=== PATIENT | male | born 1995 | race Caucasian/White ===

== ENCOUNTER 2017-05-08 20:19 | Inpatient (IN) | payer OTHER ==
[2017-05-08 22:23] LABS: Alanine Aminotransferase 57 units/L (7-56); Albumin 4.3 g/dL (3.9-5); Alkaline Phosphatase 59 units/L (35-129); Anion Gap 17 mmol/L; BUN/Creatinine Ratio 13.33; Blood Urea Nitrogen 12 mg/dL (9-20); Calcium 9.2 mg/dL (8.4-10.2); Carbon Dioxide 28 mmol/L (22-30); Glucose 121 mg/dL (75-100); Potassium 3.8 mmol/L (3.6-5.0); Sodium 138 mmol/L (137-145); Total Protein 8.4 g/dL (6.3-8.2)
[2017-05-08 22:33] LABS: Basophils % (Auto) 0.3 % (0.0-1.8); Eosinophils % (Auto) 0.2 % (0.0-4.3); Hematocrit 50.5 % (35.5-45.6); Hemoglobin 16.3 gm/dl (11.8-15.2); Lipase 876 units/L (13-60); Mean Corpuscular HGB Conc 32 % (32-34); Mean Corpuscular Hemoglobin 27 pg (28-32); Mean Corpuscular Volume 84 fl (84-94); Platelet Count 317 K/mm3 (140-440); Red Cell Distribution Width 13.9 % (13.2-15.2); White Blood Count 16.5 K/mm3 (4.5-11.0)
[2017-05-09] MEDS ORDERED: DILAUDID IV ONE ×2 (00:11→01:23)
[2017-05-09] MEDS ORDERED: PEPCID IV ONE (00:11)
[2017-05-09] MEDS ORDERED: ZOFRAN IV ONE (00:11)
[2017-05-09] MEDS ORDERED: NACL 0.9% 1000 ML 1,000 ML IV ONE (00:12)
--- NOTE | 2017-05-09 00:14 | Emergency Department Report ---
ED Abdominal Pain HPI - General Chief Complaint: Abdominal Pain Stated Complaint: ABDOMINAL PAIN Time Seen by Provider: 05/09/17 00:09 Source: patient, family, RN notes reviewed Mode of arrival: Wheelchair Limitations: No Limitations - History of Present Illness Initial Comments: This is a 22-year-old male. He is previously unknown to me. He does not have a local primary care doctor. He denies chronic medical conditions. He comes to the ER today complaining of epigastric, subxiphoid abdominal pain and chest pain. Multiple episodes of nausea and vomiting. Positive chills. No leg pain. No leg swelling. No hematemesis. No testicular pain. Irritative or obstructive urinary symptoms. The pain is sharp and aching. It increases with palpation and range of motion. It decreases with rest. No recent alcohol consumption. MD Complaint: abdominal pain -: Gradual Location: epigastric Radiation: back Severity: moderate Quality: stabbing, aching Consistency: constant Improves With: rest Worsens With: eating Associated Symptoms: nausea, vomiting, chills, anorexia - Related Data Home Medications Medication Instructions Recorded Confirmed Last Taken No Known Home Medications [No 05/09/17 05/09/17 Unknown Reported Home Medications] Allergies Allergy/AdvReac Type Severity Reaction Status Date / Time No Known Allergies Allergy Unverified 05/08/17 21:18 ED Review of Systems ROS: Stated complaint: ABDOMINAL PAIN Other details as noted in HPI Constitutional: malaise, weakness. denies: fever Eyes: denies: vision change ENT: denies: epistaxis Respiratory: denies: cough Cardiovascular: chest pain Gastrointestinal: abdominal pain, nausea, vomiting Genitourinary: denies: urgency, dysuria, testicular pain, testicular mass Musculoskeletal: back pain Skin: denies: lesions Neurological: weakness Psychiatric: anxiety ED Past Medical Hx - Past Medical History Previous Medical History?: No - Surgical History Past Surgical History?: No - Social History Smoking Status: Never Smoker Substance Use Type: None - Medications Home Medications: Home Medications Medication Instructions Recorded Confirmed Last Taken Type No Known Home Medications [No 05/09/17 05/09/17 Unknown History Reported Home Medications] ED Physical Exam - General Limitations: No Limitations General appearance: alert, in no apparent distress - Head Head exam: Present: atraumatic, normocephalic - Eye Eye exam: Present: normal appearance, EOMI. Absent: nystagmus - ENT ENT exam: Present: normal exam, normal orophraynx, mucous membranes moist, normal external ear exam - Neck Neck exam: Present: normal inspection, full ROM. Absent: tenderness, meningismus - Respiratory Respiratory exam: Present: normal lung sounds bilaterally. Absent: respiratory distress, wheezes, rales, rhonchi, chest wall tenderness, accessory muscle use, decreased breath sounds, prolonged expiratory - Cardiovascular Cardiovascular Exam: Present: regular rate, normal rhythm, normal heart sounds. Absent: bradycardia, tachycardia, irregular rhythm, systolic murmur, diastolic murmur, rubs, gallop - GI/Abdominal GI/Abdominal exam: Present: soft, tenderness, normal bowel sounds, other (there is epigastric tenderness. There is no rebound, guarding or peritoneal signs. There is a negative Galvan sign.). Absent: distended, guarding, rebound, rigid , pulsatile mass - Rectal Rectal exam: Present: deferred - Extremities Exam Extremities exam: Present: normal inspection, full ROM, normal capillary refill. Absent: tenderness, pedal edema, joint swelling, calf tenderness - Back Exam Back exam: Present: normal inspection, full ROM. Absent: tenderness, CVA tenderness (R), CVA tenderness (L), muscle spasm, paraspinal tenderness, vertebral tenderness - Neurological Exam Neurological exam: Present: alert, oriented X3, other (Extraocular movements intact. Tongue midline. No facial droop. Facial sensation intact to light touch in the V1, V2, V3 distribution bilaterally. 5 and 5 strength in 4 extremities.. Sensation is intact to light touch in 4 extremities.). Absent: motor sensory deficit - Psychiatric Psychiatric exam: Present: normal affect, normal mood - Skin Skin exam: Present: warm, dry, intact, normal color. Absent: rash ED Course Vital Signs 05/08/17 05/09/17 05/09/17 21:18 00:14 01:19 Temperature 98.3 F 98.1 F Pulse Rate 88 85 83 Respiratory 18 18 16 Rate Blood Pressure 145/108 Blood Pressure 146/103 139/82 [Left] O2 Sat by Pulse 99 100 100 Oximetry - Reevaluation(s) Reevaluation #1: 05/09/17 01:23 as expected, the CT scan demonstrates uncomplicated pancreatitis with no obvious abscess formation. 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 Additional pain medication ordered. The Hospital physician, Dr. William accepts patient to her service. ED Medical Decision Making - Lab Data Result diagrams: 05/08/17 21:44 05/08/17 21:44 Vital Signs 05/08/17 05/09/17 21:18 00:14 Temperature 98.3 F 98.1 F Pulse Rate 88 85 Respiratory 18 18 Rate Blood Pressure 145/108 Blood Pressure 146/103 [Left] O2 Sat by Pulse 99 100 Oximetry Lab Results 05/08/17 05/08/17 Range/Units 21:44 21:44 WBC 16.5 H (4.5-11.0) K/mm3 RBC 6.00 H (3.65-5.03) M/mm3 Hgb 16.3 H (11.8-15.2) gm/dl Hct 50.5 H (35.5-45.6) % MCV 84 (84-94) fl MCH 27 L (28-32) pg MCHC 32 (32-34) % RDW 13.9 (13.2-15.2) % Plt Count 317 (140-440) K/mm3 Lymph % (Auto) 9.0 L (13.4-35.0) % [place] % (Auto) 10.2 H (0.0-7.3) % Eos % (Auto) 0.2 (0.0-4.3) % Baso % (Auto) 0.3 (0.0-1.8) % Lymph # 1.5 (1.2-5.4) K/mm3 [place] # 1.7 H (0.0-0.8) K/mm3 Eos # 0.0 (0.0-0.4) K/mm3 Baso # 0.1 (0.0-0.1) K/mm3 Seg Neutrophils % 80.3 H (40.0-70.0) % Seg Neutrophils # 13.2 H (1.8-7.7) K/mm3 Sodium 138 (137-145) mmol/L Potassium 3.8 (3.6-5.0) mmol/L Chloride 97.0 L (98-107) mmol/L Carbon Dioxide 28 (22-30) mmol/L Anion Gap 17 mmol/L BUN 12 (9-20) mg/dL Creatinine 0.9 (0.8-1.5) mg/dL Estimated GFR > 60 ml/min BUN/Creatinine Ratio 13.33 % Glucose 121 H (75-100) mg/dL Calcium 9.2 (8.4-10.2) mg/dL Total Bilirubin 0.60 (0.1-1.2) mg/dL AST 21 (5-40) units/L ALT 57 H (7-56) units/L Alkaline Phosphatase 59 (35-129) units/L Total Protein 8.4 H (6.3-8.2) g/dL Albumin 4.3 (3.9-5) g/dL Albumin/Globulin Ratio 1.0 % Lipase 876 H (13-60) units/L - EKG Data -: EKG Interpreted by Nh EKG shows normal: sinus rhythm, axis, intervals, QRS complexes, ST-T waves - Radiology Data Radiology results: pending - Medical Decision Making Differential diagnosis: GERD, gastritis, pancreatitis, pneumonia, reflux Assessment and plan: 22-year-old male with epigastric abdominal pain, elevated lipase, we'll suspect pancreatitis. He has a leukocytosis and is hemoconcentrated. He is afebrile with reassuring vital signs. Low risk by AYALA score, low risk by heart score, low risk by well's criteria. The patient will be treated symptomatically. CT scan of the abdomen and pelvis is pending. Plan to admit for probable new-onset pancreatitis. Critical care attestation.: If time is entered above; I have spent that time in minutes in the direct care of this critically ill patient, excluding procedure time. ED Disposition Clinical Impression: Pancreatitis Disposition: OP ADMIT IP TO THIS HOSP Is pt being admited?: Yes Condition: Good
[2017-05-09 00:30] LABS: Bilirubin,Urine NEG (Negative); Blood,Urine NEG (Negative); Ketones,Urine TR mg/dL (Negative); Leukocyte Esterase,Urine NEG (Negative); Mucus,Urine 3+ /HPF; Nitrite,Urine NEG (Negative); Urobilinogen,Urine < 2.0 mg/dL (<2.0)
[2017-05-09] MEDS ORDERED: NACL ONE (00:37)
--- NOTE | 2017-05-09 01:12 | Cat Scan Report ---
FINAL REPORT EXAM: CT ABDOMEN PELVIS W CON HISTORY: abd pain pancreatitis TECHNIQUE: CT images are acquired through the Abdomen and Pelvis following intravenous administration of contrast. Transaxial, coronal and sagittal reformations are provided. PRIORS: None FINDINGS: Partially visualized intrathoracic contents are unremarkable. There is mild bulbous enlargement of the pancreas with retroperitoneal fluid and stranding, which extends inferiorly throughout the left pericolic gutter. Pancreatic enhancement is uniform. No walled-off necrosis or abscess formation. No pancreatic ductal dilatation or parenchymal calcification. Splenic vasculature is opacified and appears patent. The liver, gallbladder, spleen and adrenal glands are unremarkable. Kidneys show no worrisome lesions, hydronephrosis, or calculi. Urinary bladder is without intraluminal stone. Small and large bowel are normal in caliber. Suggested mild duodenal wall thickening with adjacent edema is likely secondary to primary pancreatic process. Appendix is normal. No pneumoperitoneum multiple prominent peripancreatic lymph nodes. Aorta is normal in course and caliber. Superficial soft tissues are unremarkable. No acute or aggressive appearing skeletal findings. IMPRESSION: Peripancreatic and retroperitoneal fluid and stranding are compatible with acute pancreatitis. Likely mild secondary duodenitis. No walled-off necrosis, abscess formation or other evident acute complication.
[2017-05-09] MEDS ORDERED: MILK OF MAGNESIA PO PRN (02:43)
[2017-05-09] MEDS ORDERED: DULCOLAX PR PRN (02:43)
--- NOTE | 2017-05-09 02:46 | History and Physical Report ---
History of Present Illness Date of examination: 05/09/17 History of present illness: 2-year-old man with no medical problem comes emergency room with complaints of epigastric pain, left upper quadrant pain that started yesterday. He describes the pain as sharp, constant, intensity 8/10, no radiation any cannot identify exacerbating or relieving factor. Admits to nausea vomiting, unable to eat Patient denies chest pain, palpitation, shortness of breath, cough, hematochezia, dysuria, frequency, focal weakness, dysarthria, fever chills, polydipsia polyuria, hot or cold intolerance, easy bruisability, or rash or bleeding from mucosal membrane, rhinorrhea, epistaxis, earache, tinnitus, blurry vision, eye discharge, anxiety, depression. Other review of systems negative PAST SURGICAL HISTORY: None SOCIAL HISTORY: Denies alcohol, tobacco, drugs FAMILY HISTORY: Hypertension Medications and Allergies Allergies Allergy/AdvReac Type Severity Reaction Status Date / Time No Known Allergies Allergy Unverified 05/08/17 21:18 Home Medications Medication Instructions Recorded Confirmed Last Taken Type No Known Home Medications [No 05/09/17 05/09/17 Unknown History Reported Home Medications] Exam - Physical Exam Narrative exam: Gen. appearance: Patient lying in bed, no apparent distress HEENT: Normocephalic, atraumatic, pupils equally round and reactive to light, extraocular movement intact, and no sclericterus,. No JVD or thyromegaly or nodule,neck supple, no carotid bruit ,mucous membranes moist, no exudate or erythema Heart: S1, S2, regular rate and rhythm Lungs: Clear to auscultation bilaterally, breathing comfortable Abdomen: Positive bowel sounds, tender in the epigastric and left upper quadrant , nondistended, no organomegaly Extremity: No edema, cyanosis, clubbing Skin: No rash, nodules, warm, dry Neuro: Oriented 3, cranial nerves II-12 intact, speech is fluent, motor and sensory intact - Constitutional Vitals: Temp Pulse Resp BP Pulse Ox 98.1 F 83 16 139/82 100 05/09/17 00:14 05/09/17 01:19 05/09/17 01:19 05/09/17 01:19 05/09/17 01:19 Results - Labs CBC & Chem 7: 05/08/17 21:44 05/08/17 21:44 Labs: Abnormal lab results 05/08/17 05/08/17 Range/Units 21:44 21:44 WBC 16.5 H (4.5-11.0) K/mm3 RBC 6.00 H (3.65-5.03) M/mm3 Hgb 16.3 H (11.8-15.2) gm/dl Hct 50.5 H (35.5-45.6) % MCH 27 L (28-32) pg Lymph % (Auto) 9.0 L (13.4-35.0) % [place] % (Auto) 10.2 H (0.0-7.3) % [place] # 1.7 H (0.0-0.8) K/mm3 Seg Neutrophils % 80.3 H (40.0-70.0) % Seg Neutrophils # 13.2 H (1.8-7.7) K/mm3 Chloride 97.0 L (98-107) mmol/L Glucose 121 H (75-100) mg/dL ALT 57 H (7-56) units/L Total Protein 8.4 H (6.3-8.2) g/dL Lipase 876 H (13-60) units/L - Imaging and Cardiology CT scan - abdomen: report reviewed CT scan - pelvis: report reviewed Assessment and Plan Acute pancreatitis, unknown etiology Leukocytosis, stress induced Admit to medicine Start IV fluids, IV morphine, placed on bowel rest Check lipid profile, start DVT prophylaxis
[2017-05-09] MEDS ORDERED: NACL 0.9% 1000 ML 1,000 ML IV SCH (03:00)
--- NOTE | 2017-05-09 03:36 | Admit Criteria Form ---
Admission Criteria Documentation: PANCREATITIS Clinical Indications for Admission to Inpatient Care (Place 'X' for any and all applicable criteria): Admission is indicated for 1 or more of the following (1)(2)(3)(4): [X ]I. Acute pancreatitis[A] as indicated by 2 or MORE of the following: [ X]a) Abdominal pain (eg, epigastric, left upper quadrant) [ X]b) Serum amylase or serum lipase greater than 3 times the upper limit of normal [ ]c) Characteristic findings from abdominal imaging (eg, pancreatic inflammation, pancreatic necrosis, peripancreatic fluid collection)[B] [ ]II. Pancreatitis (acute or chronic ) requiring inpatient care as indicated by 1 or more of the following [ ]a) Inability to maintain oral hydration Hypoxemia [ ]b) Evidence of infection (eg, fever, peripancreatic abscess) [ ]c) Severe pain requiring acute inpatient management [ ]d) Hemodynamic instability [ ]e) Hypoxemia [ ]f) Acute renal failure [ ]g) Severe electrolyte abnormalities Extended stay beyond goal length of stay may be needed for (1)(11) [ ]a) Severe acute pancreatitis (10)(19) [ ]b) Persistent symptoms, ascites, or pleural effusion [ ]c) Abdominal compartment syndrome (10) [ ]d) Late complications [ ]e) Gallstones in gallbladder [ ]f) Acute renal failure (27) The original [employer] content created by [employer] has been revised. The portions of the content which have been revised are identified through the use of italic text or in bold,and [facility] has neither reviewed nor approved the modified material.All other unmodified content is copyright [facility]. Please see references footnoted in the original [facility] edition 2016 Admission Criteria Met: Yes
[2017-05-09] MEDS: MORPHINE IV PRN ×6 (05:10→23:46)
--- NOTE | 2017-05-09 07:17 | XRay Report ---
Single view chest: History: Chest pain. Findings: Normal cardiomediastinal silhouette. Trachea is midline. No consolidation, pneumothorax or pleural effusion. Impression: No acute cardiopulmonary findings.
[2017-05-09] MEDS: LOVENOX SUB-Q SCH (09:27)
--- NOTE | 2017-05-09 10:24 | Event Note ---
Date: 05/09/17 Patient with acute pancreatitis. Still complain of abdominal pain. He was seen and examined. Will increase Morphine to 4mg iv every 4 hours prn.
[2017-05-09] MEDS: PEPCID IV SCH ×2 (12:24→22:00)
[2017-05-09] MEDS: PROTONIX PO SCH (12:24)
[2017-05-09] MEDS: D5NS 1,000 ML IV SCH ×2 (12:25→21:59)
--- NOTE | 2017-05-09 18:43 | Consultation ---
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 No GI bleed, F/C/NS, diarrhea. Here, found to have pancreatitis by labs and CT. No prior history of this. No hx of EtOH. Only takes PPI for heartburn at home. No weight loss. Of note, pt states he had similar symptoms 12 yrs ago, and thinks he was advised to get CCX, but his mother declined. Past History Past Medical History: GERD Past Surgical History: No surgical history Social history: denies: smoking, alcohol abuse Medications and Allergies Allergies Allergy/AdvReac Type Severity Reaction Status Date / Time No Known Allergies Allergy Unverified 05/08/17 21:18 Home Medications Medication Instructions Recorded Confirmed Last Taken Type No Known Home Medications [No 05/09/17 05/09/17 Unknown History Reported Home Medications] Active Meds: Active Medications Acetaminophen (Tylenol) 650 mg PO Q4H PRN PRN Reason: Pain MILD(1-3)/Fever >100.5/HOLT Bisacodyl (Dulcolax) 10 mg DE QDAY PRN PRN Reason: Constipation unrelieved by MOM Enoxaparin Sodium (Lovenox) 40 mg SUB-Q QDAY [facility] Last Admin: 05/09/17 09:27 Dose: 40 mg Famotidine (Pepcid) 20 mg IV BID [facility] Last Admin: 05/09/17 12:24 Dose: 20 mg Sodium Chloride (Nacl 0.9% 1000 Ml) 1,000 mls @ 150 mls/hr IV DIRECT YU Dextrose/Sodium Chloride (D5ns) 1,000 mls @ 100 mls/hr IV DIRECT YU Last Admin: 05/09/17 12:25 Dose: 100 mls/hr Magnesium Hydroxide (Milk Of Magnesia) 30 ml PO Q4H PRN PRN Reason: Constipation Morphine Sulfate (Morphine) 4 mg IV Q4H PRN PRN Reason: Pain, Moderate (4-6) Last Admin: 05/09/17 16:46 Dose: 4 mg Ondansetron HCl (Zofran) 4 mg IV Q8H PRN PRN Reason: N/V unrelieved by Reglan Pantoprazole Sodium (Protonix) 40 mg PO QDAY [facility] Last Admin: 05/09/17 12:24 Dose: 40 mg Review of Systems All systems: negative (as per HPI) Exam - Constitutional Vitals: Temp Pulse Resp BP Pulse Ox 98.7 F 78 22 147/95 100 05/09/17 08:10 05/09/17 08:10 05/09/17 08:10 05/09/17 08:10 05/09/17 13:01 General appearance: Present: no acute distress - EENT Eyes: Present: PERRL, EOM intact ENT: hearing intact - Respiratory Respiratory effort: normal Respiratory: bilateral: CTA - Cardiovascular Rhythm: regular Heart Sounds: Present: S1 & S2 - Extremities Extremities: No edema - Abdominal General gastrointestinal: Present: soft, tender (Diffuse, jaclyn epigastric and LLQ ), normal bowel sounds Results - Labs CBC & Chem 7: 05/08/17 21:44 05/08/17 21:44 Labs: Abnormal lab results 05/09/17 Range/Units Unknown Triglycerides 167 H (2-149) mg/dL Cholesterol 230 H (50-199) mg/dL LDL Cholesterol Direct 155 H (50-130) mg/dL Assessment and Plan 1. Pancreatitis - by CT and labs and clinically. No clear etiology. Biliary etiology needs to be excluded. Triglycerides not elevated enough. - conservative, supportive care - GB ultrasound
[2017-05-09] MEDS: ZOFRAN IV PRN (20:11)
[2017-05-10] MEDS: ZOFRAN IV PRN ×3 (03:02→18:41)
[2017-05-10] MEDS: DILAUDID IV PRN ×5 (03:23→22:56)
[2017-05-10 06:49] LABS: Basophils % (Auto) 0.3 % (0.0-1.8); Hematocrit 42.9 % (35.5-45.6); Hemoglobin 13.5 gm/dl (11.8-15.2); Mean Corpuscular HGB Conc 32 % (32-34); Mean Corpuscular Hemoglobin 27 pg (28-32); Mean Corpuscular Volume 87 fl (84-94); Platelet Count 233 K/mm3 (140-440); Red Blood Count 4.96 M/mm3 (3.65-5.03); Red Cell Distribution Width 14.2 % (13.2-15.2); White Blood Count 15.4 K/mm3 (4.5-11.0)
[2017-05-10] MEDS: D5NS 1,000 ML IV SCH ×2 (07:03→22:57)
[2017-05-10 07:14] LABS: Anion Gap 16 mmol/L; Blood Urea Nitrogen 8 mg/dL (9-20); Calcium 8.2 mg/dL (8.4-10.2); Carbon Dioxide 24 mmol/L (22-30); Chloride 101.4 mmol/L (98-107); Glucose 93 mg/dL (75-100); Lipase 195 units/L (13-60); Sodium 137 mmol/L (137-145)
[2017-05-10] MEDS: LOVENOX SUB-Q SCH (09:28)
[2017-05-10] MEDS: PEPCID IV SCH ×2 (09:28→22:55)
[2017-05-10] MEDS: PROTONIX PO SCH (09:28)
--- NOTE | 2017-05-10 09:35 | Ultrasound Report ---
Ultrasound of the right upper quadrant. History: Abdominal pain nausea. Findings: The abdominal aorta and liver are normal. There are a few low level echoes within the gallbladder lumen, but no acoustic shadowing. The wall of the gallbladder is normal in thickness. The common bile duct is normal at 4.5 mm. The right kidney is normal in size and configuration with no evidence of mass or hydronephrosis. The pancreas is not well-visualized. Please refer to the CT abdominal scan performed on May 09, 2017. Impression: Minimal gallbladder sludge formation with no other significant findings.
--- NOTE | 2017-05-10 10:45 | Progress Note ---
Assessment and Plan Assessment and plan: Acute pancreatitis. Etiology unclear. He does not drink alcohol. Abdominal ultrasound did not show any stones. Dilaudid for pain management.I discussed case with GI Physician, and to commence obtaining a surgical consult. Also discussed with surgeon Dr. Ku. Hyperlipidemia DVT prophylaxis with Lovenox. History Interval history: Feels better, Less abdominal pain Hospitalist Physical - Physical exam Narrative exam: Gen Appearance: No acute distress, obese HEENT: normocephalic, atraumatic Neck: supple, no JVD Lungs: clear to auscultation bilaterally, no crackles or wheezes Heart: S1 and S2 regular, no murmurs or gallop Abdomen: Soft, tender upper abdomen, non-distended, normal bowel sounds Extremity: No edema, clubbing or cyanosis Neuro : Awake, alert, oriented x 3 Psych :calm - Constitutional Vitals: Temp Pulse Resp BP Pulse Ox 100.1 F H 105 H 18 127/72 95 05/10/17 08:20 05/10/17 08:20 05/10/17 08:20 05/10/17 08:20 05/10/17 08:20 General appearance: Present: no acute distress Results - Labs CBC & Chem 7: 05/10/17 06:19 05/10/17 06:19 Labs: Laboratory Last Values WBC 15.4 K/mm3 (4.5-11.0) H 05/10/17 06:19 RBC 4.96 M/mm3 (3.65-5.03) 05/10/17 06:19 Hgb 13.5 gm/dl (11.8-15.2) 05/10/17 06:19 Hct 42.9 % (35.5-45.6) D 05/10/17 06:19 MCV 87 fl (84-94) D 05/10/17 06:19 MCH 27 pg (28-32) L 05/10/17 06:19 MCHC 32 % (32-34) 05/10/17 06:19 RDW 14.2 % (13.2-15.2) 05/10/17 06:19 Plt Count 233 K/mm3 (140-440) 05/10/17 06:19 Lymph % (Auto) 11.1 % (13.4-35.0) L 05/10/17 06:19 [place] % (Auto) 11.7 % (0.0-7.3) H 05/10/17 06:19 Eos % (Auto) 1.0 % (0.0-4.3) 05/10/17 06:19 Baso % (Auto) 0.3 % (0.0-1.8) 05/10/17 06:19 Lymph # 1.7 K/mm3 (1.2-5.4) 05/10/17 06:19 [place] # 1.8 K/mm3 (0.0-0.8) H 05/10/17 06:19 Eos # 0.1 K/mm3 (0.0-0.4) 05/10/17 06:19 Baso # 0.1 K/mm3 (0.0-0.1) 05/10/17 06:19 Seg Neutrophils % 75.9 % (40.0-70.0) H 05/10/17 06:19 Seg Neutrophils # 11.7 K/mm3 (1.8-7.7) H 05/10/17 06:19 Sodium 137 mmol/L (137-145) 05/10/17 06:19 Potassium 4.0 mmol/L (3.6-5.0) 05/10/17 06:19 Chloride 101.4 mmol/L (98-107) 05/10/17 06:19 Carbon Dioxide 24 mmol/L (22-30) 05/10/17 06:19 Anion Gap 16 mmol/L 05/10/17 06:19 BUN 8 mg/dL (9-20) L 05/10/17 06:19 Creatinine 0.8 mg/dL (0.8-1.5) 05/10/17 06:19 Estimated GFR > 60 ml/min 05/10/17 06:19 BUN/Creatinine Ratio 10.00 % 05/10/17 06:19 Glucose 93 mg/dL (75-100) 05/10/17 06:19 Calcium 8.2 mg/dL (8.4-10.2) L 05/10/17 06:19 Total Bilirubin 0.60 mg/dL (0.1-1.2) 05/08/17 21:44 AST 21 units/L (5-40) 05/08/17 21:44 ALT 57 units/L (7-56) H 05/08/17 21:44 Alkaline Phosphatase 59 units/L (35-129) 05/08/17 21:44 Total Protein 8.4 g/dL (6.3-8.2) H 05/08/17 21:44 Albumin 4.3 g/dL (3.9-5) 05/08/17 21:44 Albumin/Globulin Ratio 1.0 % 05/08/17 21:44 Triglycerides 167 mg/dL (2-149) H 05/09/17 Unknown Cholesterol 230 mg/dL (50-199) H 05/09/17 Unknown LDL Cholesterol Direct 155 mg/dL (50-130) H 05/09/17 Unknown HDL Cholesterol 42 mg/dL (40-59) 05/09/17 Unknown Cholesterol/HDL Ratio 5.47 % 05/09/17 Unknown Lipase 195 units/L (13-60) H 05/10/17 06:19 Urine Color Kyra (Yellow) 05/08/17 23:41 Urine Turbidity Clear (Clear) 05/08/17 23:41 Urine pH 6.0 (5.0-7.0) 05/08/17 23:41 Ur Specific [place] 1.029 (1.003-1.030) 05/08/17 23:41 Urine Protein 100 mg/dl mg/dL (Negative) 05/08/17 23:41 Urine Glucose (UA) Neg mg/dL (Negative) 05/08/17 23:41 Urine Ketones Tr mg/dL (Negative) 05/08/17 23:41 Urine Blood Neg (Negative) 05/08/17 23:41 Urine Nitrite Neg (Negative) 05/08/17 23:41 Urine Bilirubin Neg (Negative) 05/08/17 23:41 Urine Urobilinogen < 2.0 mg/dL (<2.0) 05/08/17 23:41 Ur Leukocyte Esterase Neg (Negative) 05/08/17 23:41 Urine WBC (Auto) 4.0 /HPF (0.0-6.0) 05/08/17 23:41 Urine RBC (Auto) 5.0 /HPF (0.0-6.0) 05/08/17 23:41 U Epithel Cells (Auto) < 1.0 /HPF (0-13.0) 05/08/17 23:41 Hyaline Casts 4 /LPF 05/08/17 23:41 Urine Mucus 3+ /HPF 05/08/17 23:41
[2017-05-10] MEDS: TYLENOL PO PRN (12:12)
--- NOTE | 2017-05-10 14:42 | Progress Note ---
Assessment and Plan 1. Pancreatitis - clinically improved. U/S shows sludge in GB, most likely etiology of pancreatitis. - would recommend elective CCX - adv diet as tolerated. Subjective Date of service: 05/10/17 Interval history: Pt feels much better. Less abd pain. Objective - Constitutional Vitals: Vital Signs - 12hr 05/10/17 05/10/17 05/10/17 03:23 07:01 08:20 Temperature 100.1 F H Pulse Rate [ 105 H Left Radial] Respiratory 18 18 18 Rate Blood Pressure 127/72 [Left Arm] O2 Sat by Pulse 95 Oximetry General appearance: Present: no acute distress - EENT Eyes: PERRL, EOM intact ENT: hearing intact - Respiratory Respiratory effort: normal - Gastrointestinal General gastrointestinal: Present: soft, tender (Minimal, epigastric and LLQ), normal bowel sounds - Labs CBC & Chem 7: 05/10/17 06:19 05/10/17 06:19 Labs: Abnormal lab results 05/10/17 05/10/17 Range/Units 06:19 06:19 WBC 15.4 H (4.5-11.0) K/mm3 MCH 27 L (28-32) pg Lymph % (Auto) 11.1 L (13.4-35.0) % [place] % (Auto) 11.7 H (0.0-7.3) % [place] # 1.8 H (0.0-0.8) K/mm3 Seg Neutrophils % 75.9 H (40.0-70.0) % Seg Neutrophils # 11.7 H (1.8-7.7) K/mm3 BUN 8 L (9-20) mg/dL Calcium 8.2 L (8.4-10.2) mg/dL Lipase 195 H (13-60) units/L
--- NOTE | 2017-05-10 15:00 | Consultation ---
History of Present Illness Reason for consult: gallstones - History of present illness History of present illness: Pt seen tday for abd pain nasea and vomiting ,with elevated lipase 700 ;Us sludge will obtain hida scan talked to Dr uriostegui ,talked to the Pt uncle , awaiting result , Past History Past Medical History: GERD Past Surgical History: No surgical history Social history: denies: smoking, alcohol abuse Medications and Allergies Allergies Allergy/AdvReac Type Severity Reaction Status Date / Time No Known Allergies Allergy Unverified 05/08/17 21:18 Home Medications Medication Instructions Recorded Confirmed Last Taken Type No Known Home Medications [No 05/09/17 05/09/17 Unknown History Reported Home Medications] Active Meds: Active Medications Acetaminophen (Tylenol) 650 mg PO Q4H PRN PRN Reason: Pain MILD(1-3)/Fever >100.5/HOLT Last Admin: 05/10/17 12:12 Dose: 650 mg Bisacodyl (Dulcolax) 10 mg [place] QDAY PRN PRN Reason: Constipation unrelieved by MOM Enoxaparin Sodium (Lovenox) 40 mg SUB-Q QDAY YU Last Admin: 05/10/17 09:28 Dose: 40 mg Famotidine (Pepcid) 20 mg IV BID YU Last Admin: 05/10/17 09:28 Dose: 20 mg Hydromorphone HCl (Dilaudid) 2 mg IV Q4HR PRN PRN Reason: Severe Pain Last Admin: 05/10/17 12:12 Dose: 2 mg Sodium Chloride (Nacl 0.9% 1000 Ml) 1,000 mls @ 150 mls/hr IV DIRECT YU Dextrose/Sodium Chloride (D5ns) 1,000 mls @ 100 mls/hr IV DIRECT YU Last Admin: 05/10/17 07:03 Dose: 100 mls/hr Magnesium Hydroxide (Milk Of Magnesia) 30 ml PO Q4H PRN PRN Reason: Constipation Ondansetron HCl (Zofran) 4 mg IV Q6H PRN PRN Reason: Nausea And Vomiting Last Admin: 05/10/17 10:56 Dose: 4 mg Exam Vital Signs Temp Pulse Resp BP Pulse Ox 98.3 F 88 18 145/108 99 05/08/17 21:18 05/08/17 21:18 05/08/17 21:18 05/08/17 21:18 05/08/17 21:18 Results - Labs 05/10/17 06:19 05/10/17 06:19 Abnormal lab results 05/10/17 05/10/17 Range/Units 06:19 06:19 WBC 15.4 H (4.5-11.0) K/mm3 MCH 27 L (28-32) pg Lymph % (Auto) 11.1 L (13.4-35.0) % [place] % (Auto) 11.7 H (0.0-7.3) % [place] # 1.8 H (0.0-0.8) K/mm3 Seg Neutrophils % 75.9 H (40.0-70.0) % Seg Neutrophils # 11.7 H (1.8-7.7) K/mm3 BUN 8 L (9-20) mg/dL Calcium 8.2 L (8.4-10.2) mg/dL Lipase 195 H (13-60) units/L Diabetes panel 05/10/17 Range/Units 06:19 Sodium 137 (137-145) mmol/L Potassium 4.0 (3.6-5.0) mmol/L Chloride 101.4 (98-107) mmol/L Carbon Dioxide 24 (22-30) mmol/L BUN 8 L (9-20) mg/dL Creatinine 0.8 (0.8-1.5) mg/dL Glucose 93 (75-100) mg/dL Calcium 8.2 L (8.4-10.2) mg/dL Calcium panel 05/10/17 Range/Units 06:19 Calcium 8.2 L (8.4-10.2) mg/dL Pituitary panel 05/10/17 Range/Units 06:19 Sodium 137 (137-145) mmol/L Potassium 4.0 (3.6-5.0) mmol/L Chloride 101.4 (98-107) mmol/L Carbon Dioxide 24 (22-30) mmol/L BUN 8 L (9-20) mg/dL Creatinine 0.8 (0.8-1.5) mg/dL Glucose 93 (75-100) mg/dL Calcium 8.2 L (8.4-10.2) mg/dL Adrenal panel 05/10/17 Range/Units 06:19 Sodium 137 (137-145) mmol/L Potassium 4.0 (3.6-5.0) mmol/L Chloride 101.4 (98-107) mmol/L Carbon Dioxide 24 (22-30) mmol/L BUN 8 L (9-20) mg/dL Creatinine 0.8 (0.8-1.5) mg/dL Glucose 93 (75-100) mg/dL Calcium 8.2 L (8.4-10.2) mg/dL
--- NOTE | 2017-05-10 16:52 | Anesthesia Consultation ---
Anesthesia Consult and Med Hx Date of service: 05/10/17 - Airway Anesthetic Teeth Evaluation: Good ROM Head & Neck: Adequate Mental/Hyoid Distance: Adequate Mallampati Class: Class II Intubation Access Assessment: Probably Good - Pulmonary Exam CTA: Yes - Cardiac Exam Cardiac Exam: RRR - Pre-Operative Health Status ASA Pre-Surgery Classification: ASA1 Proposed Anesthetic Plan: General - Pulmonary Hx Asthma: No COPD: No Hx Pneumonia: No - Central Nervous System Hx Psychiatric Problems: No - Gastrointestinal Hx Gastroesophageal Reflux Disease: Yes (takes Prilosec) - Endocrine Hx End Stage Renal Disease: No - Other Systems Hx Cancer: No - Additional Comments Anesthesia Medical History Comments: No prior anesthesia
[2017-05-10] MEDS ORDERED: KINEVAC IV ONE (16:55)
[2017-05-10] MEDS ORDERED: WATER FOR INJ (PF) 10 ML ONE (16:56)
--- NOTE | 2017-05-10 18:04 | Nuclear Medicine Report ---
FINAL REPORT PROCEDURE: NM HEPATOBILIARY W CCK TECHNIQUE: Gamma camera images of the upper abdomen, including the hepatobiliary ductal system and gallbladder, were obtained after the IV injection of 5 mCi Tc-99m Choletec. Quantitative measurement of gallbladder function was obtained after the 60 minute IV infusion of 1.87 micrograms of cholecystokinin. HISTORY: Right upper quadrant abdomen pain COMPARISON: No relevant imaging study of the anatomical region(s) in question is available, or known to exist, for comparison . FINDINGS: Hepatic extraction: Normal . Liver size/shape: Normal . Gallbladder visualization: Prompt excretion into the gallbladder. Biliary to bowel transit: Prompt excretion into the small bowel. Gallbladder Ejection Fraction after CCk: 13 percent. (Normal range is greater than or equal to 38 percent at 60 minutes) IMPRESSION: Gallbladder hypokinesis is seen. No biliary ductal obstruction or suggestion of acute cholecystitis is seen.
--- NOTE | 2017-05-10 22:18 | Progress Note ---
Subjective Narrative: Hida scan done this PM E/F 13% talked to Dr Sun tis AM agreed on cholecystectomy . the family discussed the case ,opted not to have surgery , left it as is , Family expressed the desire to go home will leave this for the MD in charge, OR informed , will see PRN thanks . Objective Vital Signs - 12hr 05/10/17 12:10 Temperature 100.3 F H Pulse Rate [ 113 H Left Radial] Respiratory 20 Rate Blood Pressure 138/84 [Left Arm] - Labs 05/10/17 06:19 05/10/17 06:19 Diabetes panel 05/10/17 Range/Units 06:19 Sodium 137 (137-145) mmol/L Potassium 4.0 (3.6-5.0) mmol/L Chloride 101.4 (98-107) mmol/L Carbon Dioxide 24 (22-30) mmol/L BUN 8 L (9-20) mg/dL Creatinine 0.8 (0.8-1.5) mg/dL Glucose 93 (75-100) mg/dL Calcium 8.2 L (8.4-10.2) mg/dL Calcium panel 05/10/17 Range/Units 06:19 Calcium 8.2 L (8.4-10.2) mg/dL Pituitary panel 05/10/17 Range/Units 06:19 Sodium 137 (137-145) mmol/L Potassium 4.0 (3.6-5.0) mmol/L Chloride 101.4 (98-107) mmol/L Carbon Dioxide 24 (22-30) mmol/L BUN 8 L (9-20) mg/dL Creatinine 0.8 (0.8-1.5) mg/dL Glucose 93 (75-100) mg/dL Calcium 8.2 L (8.4-10.2) mg/dL Adrenal panel 05/10/17 Range/Units 06:19 Sodium 137 (137-145) mmol/L Potassium 4.0 (3.6-5.0) mmol/L Chloride 101.4 (98-107) mmol/L Carbon Dioxide 24 (22-30) mmol/L BUN 8 L (9-20) mg/dL Creatinine 0.8 (0.8-1.5) mg/dL Glucose 93 (75-100) mg/dL Calcium 8.2 L (8.4-10.2) mg/dL
[2017-05-11] MEDS: ZOFRAN IV PRN ×4 (00:45→22:20)
[2017-05-11] MEDS: DILAUDID IV PRN ×5 (02:47→20:43)
[2017-05-11] MEDS: D5NS 1,000 ML IV SCH ×2 (08:15→20:44)
--- NOTE | 2017-05-11 08:42 | Gastroenterology Progress Note ---
Assessment and Plan GI: stable without problems overnight - HIDA results noted - pt for outpt surgical follow up and consider surgery then - ok to d/c from GI standpoint - will sign off, call if needed Subjective Date of service: 05/11/17 Interval history: - no problems overnight Objective - Constitutional Vitals: Temp Pulse Resp BP Pulse Ox 100.5 F H 111 H 16 127/60 92 05/10/17 22:59 05/10/17 22:59 05/10/17 22:59 05/10/17 22:59 05/10/17 22:59 General appearance: no acute distress - Respiratory Respiratory: bilateral: CTA - Cardiovascular Rhythm: regular Heart Sounds: Present: S1 & S2 - Gastrointestinal General gastrointestinal: Present: soft, non-tender - Labs CBC & Chem 7: 05/10/17 06:19 05/10/17 06:19
[2017-05-11] MEDS: PEPCID IV SCH ×2 (09:00→22:20)
[2017-05-11] MEDS: LOVENOX SUB-Q SCH (09:00)
--- NOTE | 2017-05-11 10:16 | Progress Note ---
Assessment and Plan Assessment and plan: Acute pancreatitis. Etiology unclear. He does not drink alcohol. Abdominal ultrasound did not show any stones. Dilaudid for pain management.I discussed case with GI Physician, Surgeon. Advance diet. SIRS with fever, tachycardia. Tylenol prn, iv flids Fever. Monitor. Blood cultures drawn. Start empiric Antibiotics Hyperlipidemia DVT prophylaxis with Lovenox. History Interval history: Feels better, Less abdominal pain, fever Hospitalist Physical - Physical exam Narrative exam: Gen Appearance: No acute distress, obese HEENT: normocephalic, atraumatic Neck: supple, no JVD Lungs: clear to auscultation bilaterally, no crackles or wheezes Heart: S1 and S2 regular, no murmurs or gallop Abdomen: Soft, tender upper abdomen, non-distended, normal bowel sounds Extremity: No edema, clubbing or cyanosis Neuro : Awake, alert, oriented x 3 Psych :calm - Constitutional Vitals: Temp Pulse Resp BP Pulse Ox 100.5 F H 112 H 18 100/60 98 05/11/17 08:00 05/11/17 08:00 05/11/17 08:00 05/11/17 08:00 05/11/17 08:00 General appearance: Present: no acute distress Results - Labs CBC & Chem 7: 05/10/17 06:19 05/10/17 06:19 Labs: Laboratory Last Values WBC 15.4 K/mm3 (4.5-11.0) H 05/10/17 06:19 RBC 4.96 M/mm3 (3.65-5.03) 05/10/17 06:19 Hgb 13.5 gm/dl (11.8-15.2) 05/10/17 06:19 Hct 42.9 % (35.5-45.6) D 05/10/17 06:19 MCV 87 fl (84-94) D 05/10/17 06:19 MCH 27 pg (28-32) L 05/10/17 06:19 MCHC 32 % (32-34) 05/10/17 06:19 RDW 14.2 % (13.2-15.2) 05/10/17 06:19 Plt Count 233 K/mm3 (140-440) 05/10/17 06:19 Lymph % (Auto) 11.1 % (13.4-35.0) L 05/10/17 06:19 [place] % (Auto) 11.7 % (0.0-7.3) H 05/10/17 06:19 Eos % (Auto) 1.0 % (0.0-4.3) 05/10/17 06:19 Baso % (Auto) 0.3 % (0.0-1.8) 05/10/17 06:19 Lymph # 1.7 K/mm3 (1.2-5.4) 05/10/17 06:19 [place] # 1.8 K/mm3 (0.0-0.8) H 05/10/17 06:19 Eos # 0.1 K/mm3 (0.0-0.4) 05/10/17 06:19 Baso # 0.1 K/mm3 (0.0-0.1) 05/10/17 06:19 Seg Neutrophils % 75.9 % (40.0-70.0) H 05/10/17 06:19 Seg Neutrophils # 11.7 K/mm3 (1.8-7.7) H 05/10/17 06:19 Sodium 137 mmol/L (137-145) 05/10/17 06:19 Potassium 4.0 mmol/L (3.6-5.0) 05/10/17 06:19 Chloride 101.4 mmol/L (98-107) 05/10/17 06:19 Carbon Dioxide 24 mmol/L (22-30) 05/10/17 06:19 Anion Gap 16 mmol/L 05/10/17 06:19 BUN 8 mg/dL (9-20) L 05/10/17 06:19 Creatinine 0.8 mg/dL (0.8-1.5) 05/10/17 06:19 Estimated GFR > 60 ml/min 05/10/17 06:19 BUN/Creatinine Ratio 10.00 % 05/10/17 06:19 Glucose 93 mg/dL (75-100) 05/10/17 06:19 Calcium 8.2 mg/dL (8.4-10.2) L 05/10/17 06:19 Total Bilirubin 0.60 mg/dL (0.1-1.2) 05/08/17 21:44 AST 21 units/L (5-40) 05/08/17 21:44 ALT 57 units/L (7-56) H 05/08/17 21:44 Alkaline Phosphatase 59 units/L (35-129) 05/08/17 21:44 Total Protein 8.4 g/dL (6.3-8.2) H 05/08/17 21:44 Albumin 4.3 g/dL (3.9-5) 05/08/17 21:44 Albumin/Globulin Ratio 1.0 % 05/08/17 21:44 Triglycerides 167 mg/dL (2-149) H 05/09/17 Unknown Cholesterol 230 mg/dL (50-199) H 05/09/17 Unknown LDL Cholesterol Direct 155 mg/dL (50-130) H 05/09/17 Unknown HDL Cholesterol 42 mg/dL (40-59) 05/09/17 Unknown Cholesterol/HDL Ratio 5.47 % 05/09/17 Unknown Lipase 195 units/L (13-60) H 05/10/17 06:19 Urine Color [place] (Yellow) 05/08/17 23:41 Urine Turbidity Clear (Clear) 05/08/17 23:41 Urine pH 6.0 (5.0-7.0) 05/08/17 23:41 Ur Specific [place] 1.029 (1.003-1.030) 05/08/17 23:41 Urine Protein 100 mg/dl mg/dL (Negative) 05/08/17 23:41 Urine Glucose (UA) Neg mg/dL (Negative) 05/08/17 23:41 Urine Ketones Tr mg/dL (Negative) 05/08/17 23:41 Urine Blood Neg (Negative) 05/08/17 23:41 Urine Nitrite Neg (Negative) 05/08/17 23:41 Urine Bilirubin Neg (Negative) 05/08/17 23:41 Urine Urobilinogen < 2.0 mg/dL (<2.0) 05/08/17 23:41 Ur Leukocyte Esterase Neg (Negative) 05/08/17 23:41 Urine WBC (Auto) 4.0 /HPF (0.0-6.0) 05/08/17 23:41 Urine RBC (Auto) 5.0 /HPF (0.0-6.0) 05/08/17 23:41 U Epithel Cells (Auto) < 1.0 /HPF (0-13.0) 05/08/17 23:41 Hyaline Casts 4 /LPF 05/08/17 23:41 Urine Mucus 3+ /HPF 05/08/17 23:41
[2017-05-11] MEDS: TYLENOL PO PRN (14:29)
[2017-05-11 15:26] LABS: Hematocrit 39.9 % (35.5-45.6); Mean Corpuscular HGB Conc 33 % (32-34); Mean Corpuscular Hemoglobin 28 pg (28-32); Mean Corpuscular Volume 85 fl (84-94); Platelet Count 237 K/mm3 (140-440); Red Cell Distribution Width 13.6 % (13.2-15.2); White Blood Count 15.8 K/mm3 (4.5-11.0)
[2017-05-11 15:38] LABS: Anion Gap 17 mmol/L; BUN/Creatinine Ratio 4.44; Blood Urea Nitrogen 4 mg/dL (9-20); Calcium 8.7 mg/dL (8.4-10.2); Carbon Dioxide 29 mmol/L (22-30); Chloride 96.4 mmol/L (98-107); Glucose 96 mg/dL (75-100); Lipase 118 units/L (13-60); Potassium 4.3 mmol/L (3.6-5.0); Sodium 138 mmol/L (137-145)
[2017-05-11] MEDS ORDERED: LEVAQUIN 750MG/150ML 750 MG/150 ML BAG IV SCH (17:00)
[2017-05-12] MEDS: DILAUDID IV PRN ×3 (01:00→09:31)
[2017-05-12] MEDS: D5NS 1,000 ML IV SCH (05:12)
[2017-05-12 05:17] LABS: White Blood Count 13.5 K/mm3 (4.5-11.0)
[2017-05-12 05:21] LABS: Anion Gap 19 mmol/L; BUN/Creatinine Ratio 5.71; Blood Urea Nitrogen 4 mg/dL (9-20); Calcium 8.5 mg/dL (8.4-10.2); Carbon Dioxide 24 mmol/L (22-30); Chloride 97.7 mmol/L (98-107); Glucose 92 mg/dL (75-100); Sodium 137 mmol/L (137-145)
[2017-05-12 05:25] LABS: Hematocrit 40.2 % (35.5-45.6); Mean Corpuscular Hemoglobin 28 pg (28-32); Mean Corpuscular Volume 85 fl (84-94); Red Blood Count 4.72 M/mm3 (3.65-5.03)
[2017-05-12 05:26] LABS: Mean Corpuscular HGB Conc 33 % (32-34); Platelet Count 253 K/mm3 (140-440); Red Cell Distribution Width 13.6 % (13.2-15.2)
[2017-05-12] MEDS: ZOFRAN IV PRN ×2 (06:47→12:20)
[2017-05-12 08:31] VITALS: BP 126/78
--- NOTE | 2017-05-12 08:56 | Discharge Summary ---
Providers - Providers Date of Admission: 05/09/17 02:43 Date of discharge: 05/12/17 Attending physician: KRIS VÁSQUEZ 05/09/17 07:57 Consult to Physician [CONS] Routine Consulting Provider: MARYLIN SUN Reason For Exam: Acute pancreatitis Place consult to:: dr. sun Notified:: office Phone number called:: Was contact made?: Yes Time called:: 11:44 05/10/17 12:01 Consult to Physician [CONS] Routine Consulting Provider: SHAHRIAR BROOKS Reason For Exam: Gall bladder sludge,acute pancreatitis Place consult to:: dr brooks Notified:: dr brooks Was contact made?: Yes If yes, spoke with:: dr. brooks Comment:: md on unit Primary care physician: CHILD WELFARE CONSULTANT Hospitalization Condition: Good Hospital course: Patient is 22 yo presented with abdominal pain left upper abdomen. CT abdomen showed acute pancreatitis. His lipase was also elevated. he was started on iv fuids, MPO and admitted. US Abdomen did not show any gallstones but showed sludge. He was evaluated by GI Physician, and Surgery consult recommended. Patient and family were not interested in cholecystectomy. He improved over next few days, abdominal pain subsided, lipase level decreased,patient tolerated diet, so was discharged home on 05/11/17. he had fever due to acute pancreatitis and SIRS. No infection diagnosed , therefore not discharged on Antibiotics. Total time spent on discharge, 35 mins Disposition: DC-[id number] TO HOME OR SELFCARE - Discharge Diagnoses (1) Acute pancreatitis Status: Acute Qualifiers: Pancreatitis type: P Acute pancreatitis complication: A (2) Hyperlipidemia Status: Acute Qualifiers: Hyperlipidemia type: H (3) Obesity (BMI 30.0-34.9) Status: Chronic (4) SIRS (systemic inflammatory response syndrome) Status: Acute (5) Fever Status: Acute Qualifiers: Encounter type: E (6) Leukocytosis Status: Acute Qualifiers: Leukocytosis type: L Core Measure Documentation - Palliative Care Palliative Care/ Comfort Measures: Not Applicable - Core Measures Any of the following diagnoses?: none Exam - Physical Exam Narrative exam: Gen Appearance: No acute distress, obese HEENT: normocephalic, atraumatic Neck: supple, no JVD Lungs: clear to auscultation bilaterally, no crackles or wheezes Heart: S1 and S2 regular, no murmurs or gallop Abdomen: Soft, non tender, non-distended, normal bowel sounds Extremity: No edema, clubbing or cyanosis Neuro : Awake, alert, oriented x 3 Psych :calm - Constitutional Vitals: Temp Pulse Resp BP Pulse Ox 99 F 106 H 16 126/78 98 05/12/17 08:00 05/12/17 08:00 05/12/17 08:00 05/12/17 08:00 05/12/17 08:00 Plan Activity: no restrictions Diet: low fat, low cholesterol Additional Instructions: 1.Follow up with PCP in 1 week. 2.Follow up with Dr. Sun in 1 week. 3.Hyperlipidemia to be followed by PCP Follow up with: PRIMARY CARE, [Primary Care Provider] - 3-5 Days Prescriptions: Oxycodone HCl/Acetaminophen [Percocet 10/325 mg] 1 each PO Q6HR PRN #20 tablet PRN Reason: Pain Promethazine [Phenergan TAB] 25 mg PO Q6HR PRN #20 tab PRN Reason: Nausea or vomiting
--- NOTE | 2017-05-12 09:25 | Event Note ---
Date: 05/12/17 - stable overnight without issues - ok to d/c with plan previous - call if needed
[2017-05-12] MEDS: LOVENOX SUB-Q SCH (09:31)
[2017-05-12] MEDS: PEPCID IV SCH (09:32)
== END 2017-05-12 13:20 | disposition home or self-care (01) | DRG 439 ==
LOC: ED 20:19 → 3A 05-09 02:43
PROVIDERS: ADMIT Internal Medicine; ATTEND Internal Medicine
DX: K85.90 Acute pancreatitis without necrosis or infection, unspecified (principal); R65.10 Systemic inflammatory response syndrome (SIRS) of non-infectious origin without acute organ dysfunction; E78.5 Hyperlipidemia, unspecified; F41.9 Anxiety disorder, unspecified; K21.9 Gastro-esophageal reflux disease without esophagitis; Z53.8 Procedure and treatment not carried out for other reasons
CPT/HCPCS: 36415; 71010; 74177; 76705; 78227; 80048; 80053; 80061; 81001; 83690; 85025; 85027; 87040; 93005; 93010; 96361; 96374; 96375; 96376; 99285; A9537; J1170; J1650; J1956; J2270; J2405; J2805; J7030; J7042; Q9967

== ENCOUNTER 2018-11-07 20:36 | Emergency (ER) | payer SELFPAY ==
[2018-11-08] MEDS ORDERED: AUGMENTIN 875 MG PO ONE (02:35)
[2018-11-08] MEDS ORDERED: BOOSTRIX IM ONE (02:35)
[2018-11-08] MEDS ORDERED: CLEOCIN 900 MG/50 mL 900 MG/50 ML BAG IV ONE (02:35)
[2018-11-08] MEDS ORDERED: MORPHINE IV ONE ×2 (02:41→04:28)
[2018-11-08] MEDS ORDERED: ZOFRAN IV ONE ×2 (02:41→04:29)
[2018-11-08] MEDS ORDERED: NACL 0.9% 500 ML IR ONE (02:52)
[2018-11-08] MEDS ORDERED: RABAVERT RABIES VACCINE(PCEC) IM ONE (03:18)
--- NOTE | 2018-11-08 03:53 | XRay Report ---
FINAL REPORT EXAM: XR WRIST 3+V RT HISTORY: dog bight swelling pain with rom TECHNIQUE: Three views of the right wrist were submitted. FINDINGS: There is no evidence of fracture, dislocation or radiopaque foreign body. There is mild soft tissue s welling around the wrist. IMPRESSION: Mild soft tissue swelling around the wrist. No evidence of fracture, dislocation or radiopaque foreig n body.
--- NOTE | 2018-11-08 03:55 | XRay Report ---
FINAL REPORT EXAM: XR HAND BILAT 3+V HISTORY: dog bite swelling TECHNIQUE: Three views of each hand were obtained. FINDINGS: There is no evidence of fracture dislocation or foreign body in the left hand. The left wrist joint a ppears intact. In the right hand there is no evidence of fracture or dislocation. There is mild swelling around the wrist and adjacent to the 1st metacarpal. Additional swelling seen overlying the dorsal aspect of 4th and 5th metacarpals. IMPRESSION: No evidence of fracture dislocation or foreign body in either hand. Areas of soft tissue swelling in the right hand as described.
[2018-11-08] MEDS ORDERED: PEPCID IV ONE (03:57)
--- NOTE | 2018-11-08 05:15 | Emergency Department Report ---
ED Animal Bite HPI - General Chief Complaint: Animal Bite Stated Complaint: DOG BITE Time Seen by Provider: 11/08/18 02:31 Source: patient Mode of arrival: Ambulatory Limitations: No Limitations - History of Present Illness Initial Comments: pt is a 23 y/o male who presents status post dog bite approximately 10 hours ago this point states [place] him on the left hand left central hand distal to and right hand ventral and dorsal hand there is no nerve tendon or muscle damage patient presents for swelling pain bleeding was controlled by direct pressure applied Police Department was called however patient decided to be treated in [facility] patient lives in [facility] pain is 7/10 sharp aching is no numbness or tingling , last tetanus shot is unkown . Complaint: animal bite (dog bite ) Onset/Timin -: hour(s) Left: Hand (puncture wounds ), Right: Hand Animal: dog Animal Control Notified: Yes Description: unknown animal Mechanism: bite Pain Description: sharp, constant Severity scale (0 -10): 7 Context: unprovoked Associated Symptoms: erythema, other (pain ) Treatments Prior to Arrival: irrigation (paroxide irrigation ), pressure - Related Data Patient Tetanus UTD: No (unkown ) Previous Rx's Medication Instructions Recorded Last Taken Type Oxycodone HCl/Acetaminophen 1 each PO Q6HR PRN #20 tablet 05/12/17 Unknown Rx [Percocet 10/325 mg] Promethazine [Phenergan TAB] 25 mg PO Q6HR PRN #20 tab 05/12/17 Unknown Rx Amoxicillin/Potassium Clav 1 each PO BID 10 Days #20 tablet 11/08/18 Unknown Rx [Augmentin 875-125 Tablet] Neomycn/Bacitrc/Polymyx/Pramox 1 applicatio TP BID 14 Days #1 tube 11/08/18 Unknown Rx [Neosporin + Pain Relief Oint] Omeprazole 40 mg PO DAILY #30 capsule. 11/08/18 Unknown Rx Sucralfate [Carafate] 1 gm PO ACHS 7 Days #28 udc 11/08/18 Unknown Rx traMADol [Ultram] 50 mg PO Q6HR PRN #12 tablet 11/08/18 Unknown Rx Allergies Allergy/AdvReac Type Severity Reaction Status Date / Time No Known Allergies Allergy Verified 11/07/18 20:52 ED Review of Systems ROS: Stated complaint: DOG BITE Other details as noted in HPI Constitutional: denies: chills, fever Eyes: denies: eye pain, eye discharge, vision change ENT: denies: ear pain, throat pain Respiratory: denies: cough, shortness of breath, wheezing Cardiovascular: denies: chest pain, palpitations Endocrine: no symptoms reported Gastrointestinal: denies: abdominal pain, nausea, diarrhea Genitourinary: denies: urgency, dysuria Musculoskeletal: joint swelling, myalgia, other (pain puncture wounds ) Skin: other (see above ). denies: rash, lesions Neurological: denies: headache, weakness, paresthesias Psychiatric: denies: anxiety, depression Hematological/Lymphatic: as per HPI ED Past Medical Hx - Past Medical History Hx Congestive Heart Failure: No Hx Diabetes: No Hx Asthma: No Hx COPD: No Hx HIV: No - Surgical History Past Surgical History?: No - Social History Smoking Status: Never Smoker Substance Use Type: None - Medications Home Medications: Home Medications Medication Instructions Recorded Confirmed Last Taken Type Oxycodone HCl/Acetaminophen 1 each PO Q6HR PRN #20 tablet 05/12/17 Unknown Rx [Percocet 10/325 mg] Promethazine [Phenergan TAB] 25 mg PO Q6HR PRN #20 tab 05/12/17 Unknown Rx Amoxicillin/Potassium Clav 1 each PO BID 10 Days #20 tablet 11/08/18 Unknown Rx [Augmentin 875-125 Tablet] Neomycn/Bacitrc/Polymyx/Pramox 1 applicatio TP BID 14 Days #1 tube 11/08/18 Unknown Rx [Neosporin + Pain Relief Oint] Omeprazole 40 mg PO DAILY #30 capsule.dr 11/08/18 Unknown Rx Sucralfate [Carafate] 1 gm PO ACHS 7 Days #28 udc 11/08/18 Unknown Rx traMADol [Ultram] 50 mg PO Q6HR PRN #12 tablet 11/08/18 Unknown Rx ED Physical Exam - General Limitations: No Limitations General appearance: alert, in no apparent distress - Head Head exam: Present: atraumatic, normocephalic - Eye Eye exam: Present: normal appearance - ENT ENT exam: Present: mucous membranes moist - Neck Neck exam: Present: normal inspection - Respiratory Respiratory exam: Present: normal lung sounds bilaterally. Absent: respiratory distress, wheezes, stridor - Cardiovascular Cardiovascular Exam: Present: regular rate, normal rhythm, normal heart sounds. Absent: systolic murmur, diastolic murmur, rubs, gallop - GI/Abdominal GI/Abdominal exam: Present: soft, normal bowel sounds - Rectal Rectal exam: Present: deferred - Extremities Exam Extremities exam: Present: full ROM, tenderness (puncture wounds bilat hands ), normal capillary refill, joint swelling. Absent: pedal edema - Expanded Upper Extremity Exam Left Hand Wrist exam: Present: tenderness, swelling, other (puncture wounds x 2 no bleeding mild swelling no drainage ) Neuro motor exam: Present: wrist extension intact, thumb opposition intact, thumb adduction intact, fingers 2-5 abduction intact Neurosensory exam: Present: 2-point discrimination, radial nerve intact, ulnar nerve intact, median nerve intact Vascular: Present: vascular compromise, normal capillary refill, radial pulse, brachial pulse, ulnar pulse. Absent: pulse deficit radial art, pulse deficit ulnar art, pulse deficit brachial art Right Hand Wrist exam: Present: full ROM, tenderness, swelling, erythema, other (puncture wounds x 3 pain swelling rom intact no numbness no tinging packer insulation intact distal pulses intact sharepoint admin < 3 sec bilat ) Neuro motor exam: Present: wrist extension intact, thumb opposition intact, thumb IP flexion intact, thumb adduction intact, fingers 2-5 abduction intact Neurosensory exam: Present: 2-point discrimination, radial nerve intact, ulnar n erve intact, median nerve intact Vascular: Present: radial pulse, brachial pulse, ulnar pulse. Absent: vascular compromise, normal capillary refill, pulse deficit radial art, pulse deficit ulnar art, pulse deficit brachial art - Back Exam Back exam: Present: normal inspection, full ROM - Neurological Exam Neurological exam: Present: alert, oriented X3, CN II-XII intact, normal gait, reflexes normal. Absent: motor sensory deficit - Psychiatric Psychiatric exam: Present: normal affect, normal mood - Skin Skin exam: Present: warm, dry, normal color, other (puncture wounds as above ). Absent: rash ED Course Vital Signs 11/07/18 11/08/18 11/08/18 20:53 01:35 03:02 Temperature 99.8 F H Pulse Rate 111 H Respiratory 16 18 20 Rate Blood Pressure 128/70 Blood Pressure [Left] O2 Sat by Pulse 95 Oximetry 11/08/18 11/08/18 11/08/18 03:32 03:50 04:32 Temperature Pulse Rate 92 H Respiratory 20 20 20 Rate Blood Pressure Blood Pressure 121/71 [Left] O2 Sat by Pulse 96 Oximetry - Reevaluation(s) Reevaluation #1: Findings [facility] [address] [place] [address] XRay Report Signed Patient: ANN GASTON MR#: [id number] : 1995 Acct:[id number] Age/Sex: 23 / M ADM Date: 11/07/18 Loc: ED Attending Dr: Ordering Physician: ALEXIA HAIRSTON NP Date of Service: 11/08/18 Procedure(s): XR hand BILAT 3+V Accession Number(s): [id number] cc: ALEXIA HAIRSTON NP Fluoro Time In Minutes: FINAL REPORT EXAM: XR HAND BILAT 3+V HISTORY: dog bite swelling TECHNIQUE: Three views of each hand were obtained. FINDINGS: There is no evidence of fracture dislocation or foreign body in the left hand. The left wrist joint appears intact. In the right hand there is no evidence of fracture or dislocation. There is mild swelling around the wrist and adjacent to the 1st metacarpal. Additional swelling seen overlying the dorsal aspect of 4th and 5th metacarpals. IMPRESSION: No evidence of fracture dislocation or foreign body in either hand. Areas of soft tissue swelling in the right hand as described. Transcribed By: RB Dictated By: LENA HOPPER MD Electronically Authenticated By: LENA HOPPER MD Signed Date/Time: 11/08/18 0355 11/08/18 05:11 Reevaluation #2: Emergency room with copious self-reported for 15 minutes with Betadine solution and irrigated with sterile saline 1 L patient given rabies immunization rabies immunoglobulin 10 mg a kilogram injected around wounds patient educated on rabies immunization regimen today being day 0 sterile dressings are applied and intact all bleeding is controlled hand laceration 1 cm puncture irrigated left open to dorsal right hand puncture wounds irrigated left open again all bleeding is controlled range of motion remains intact strength packer insulation are equal there is no thyroid tendon damage sterile dressings are applied patient and family member given wound care instructions included daily dressing changes with Neosporin follow up with PCP U2 days or general surgery will follow the local health department for rabies vaccinations patient states prefers ago [facility] provider which is fine. Rabies immunization today's date 0, pending date 1420 at health department. 11/08/18 05:23 11/08/18 05:26 Critical care attestation.: If time is entered above; I have spent that time in minutes in the direct care of this critically ill patient, excluding procedure time. ED Disposition Clinical Impression: Dog bite Qualifiers: Encounter type: initial encounter Qualified Code(s): W54.0XXA - Bitten by dog, initial encounter Disposition: - TO HOME OR SELFCARE Is pt being admited?: No Does the pt Need Aspirin: No Condition: Stable Instructions: Animal Bite (ED), Rabies Immune Globulin (Injection), Rabies Vaccine (Injection) Additional Instructions: rabies vaccination day 0 is complete, you need day 3, 7, 14, and 21. Prescriptions: Amoxicillin/Potassium Clav [Augmentin 875-125 Tablet] 1 each PO BID 10 Days #20 tablet Neomycn/Bacitrc/Polymyx/Pramox [Neosporin + Pain Relief Oint] 1 applicatio TP BID 14 Days #1 tube Omeprazole 40 mg PO DAILY #30 capsule. Sucralfate [Carafate] 1 gm PO ACHS 7 Days #28 udc traMADol [Ultram] 50 mg PO Q6HR PRN #12 tablet PRN Reason: Pain Referrals: [facility] [Outside] - 3-5 Days VINCENT HENAO MD [Staff Physician] - 3-5 Days Forms: Work/School Release Form(ED) Time of Disposition: 05:34
[2018-11-08 06:19] VITALS: BP 134/79
== END 2018-11-08 06:05 | disposition home or self-care (01) ==
LOC: ED 20:36
DX: S61.412A Laceration without foreign body of left hand, initial encounter (principal); S61.411A Laceration without foreign body of right hand, initial encounter; W54.0XXA Bitten by dog, initial encounter; Y93.89 Activity, other specified; Y92.89 Other specified places as the place of occurrence of the external cause; Y99.8 Other external cause status
CPT/HCPCS: 12001; 73110; 73130; 90375; 90471; 90472; 90675; 90715; 96372; 96374; 96375; 96376; 99284; J2270; J2405